=== PATIENT | male | born 1995 | race African-American/Black ===

== ENCOUNTER 2019-10-30 00:18 | Emergency (ER) | payer OTHER ==
[~2019-10-30] VITALS: Ht 172.7 cm; Wt 88.4 kg
--- NOTE | 2019-10-30 00:38 | PHYS DOC ---
Adult General Chief Complaint Chief Complaint: ".. I ve been vomiting.. for like 4 days.. feel like I got the flu or something..." HPI HPI Patient is a 24 year old male dependent who presents with above hx and complaints nausea and vomiting for the last 4 days. Patient did not get a flu vaccination this season. Recent travel to [facility] approximately 1 month ago. No history of bad food intake. No history immunosuppression. Normally follows at [facility]. Patient localizes pain in epigastric area. Review of Systems Review of Systems Constitutional: Denies fever or chills [] Eyes: Denies change in visual acuity, redness, or eye pain [] HENT: Denies nasal congestion or sore throat [] Respiratory: Denies cough or shortness of breath [] Cardiovascular: No additional information not addressed in HPI [] GI: Complaints of epigastric abdominal pain, nausea, vomiting. No history of, bloody stools or diarrhea [] : Denies dysuria or hematuria [] Musculoskeletal: Denies back pain or joint pain [] Integument: Denies rash or skin lesions [] Neurologic: Denies headache, focal weakness or sensory changes [] Endocrine: Denies polyuria or polydipsia [] All other systems were reviewed and found to be within normal limits, except as documented in this note. Family History Family History Noncontributory to presentation Current Medications Current Medications See nursing for home meds Allergies Allergies No known drug allergies Physical Exam Physical Exam Constitutional: Moderate acute distress, non-toxic appearance. [] HENT: Normocephalic, atraumatic, bilateral external ears normal, oropharynx dry, no oral exudates, nose normal. [] Eyes: PERRLA, EOMI, conjunctiva normal, no discharge. [] Neck: Normal range of motion, no tenderness, supple, no stridor. [] Cardiovascular:Heart rate regular rhythm, no murmur [] Lungs & Thorax: Bilateral breath sounds equal at apex with few scattered wheezes auscultation [] Abdomen: Bowel sounds normal, soft, epigastric tenderness, no masses, no pulsatile masses. [] Circumcised male. Scar on penis. Rebound to epigastric area Skin: Warm, dry, no erythema, no rash. [] Back: No tenderness, no CVA tenderness. [] Extremities: No tenderness, no cyanosis, no clubbing, ROM intact, no edema. [] No psoas sign. Neurologic: Alert and oriented X 3, normal motor function, normal sensory function, no focal deficits noted. [] Psychologic: Affect anxious, judgement normal, mood normal. [] EKG EKG [] Radiology/Procedures Radiology/Procedures [][address] [address] IMAGING REPORT Signed PATIENT: AMINTA PRETTYOUNT: [id number] : 1995 LOCATION: ER AGE: 24 SEX: M EXAM STATUS: REG ER ORD. PHYSICIAN: SHAKIRA JHA MD REASON: Abdomen pain, nausea, vomiting PROCEDURE: ACUTE ABDOMEN SERIES ACUTE ABDOMEN SERIES History: Abdominal pain. Nausea vomiting Technique: Upright and supine views of the abdomen. Comparison: None. Findings: No consolidation or pleural effusion. Normal heart size. No pneumoperitoneum. Minimal small bowel gas. Air and stool scattered throughout the imaged colon. Impression: 1. Nonobstructed bowel gas pattern. Electronically signed by: Dutch Dixon DO (10/30/2019 1:54 AM) [id number] DICTATED AND SIGNED BY: DUTCH DIXON DO DATE: 10/30/19 0154 CC: SHAKIRA JHA MD; PCP,TONIA ~ Course & Med Decision Making Course & Med Decision Making Pertinent Labs and Imaging studies reviewed. (See chart for details) Patient remain on a clear fluid diet for the next 48 hours. No solids no milk products. Must allow bowel rest. Takes Zantac 150 mg twice a day. Take Tylenol and ibuprofen as needed for discomfort. Take Zofran 8 mg up 4 times a day for active nausea and vomiting. Patient review ED record with primary care.. Push fruit juices. Return if any concerns. Impression: 1. Viral Syndrome 2. Hx Nausea and Vomiting 3. Gastritis 4. Mild Hypokalemia 3.4 [] Dragon Disclaimer Dragon Disclaimer This electronic medical record was generated, in whole or in part, using a voice recognition dictation system. Departure Departure: Disposition: 01 HOME/RESIDENCE PRIOR TO ADM Condition: STABLE Referrals: PCPTONIA (PCP) Scripts Ranitidine Hcl (ZANTAC) 150 Mg Tablet 150 MG PO BID for gastritis for 30 Days, #60 TAB Prov: SHAKIRA JHA MD 10/30/19 Ondansetron Hcl (ZOFRAN) 8 Mg Tablet 8 MG PO QIDPRN PRN for NAUSEA/VOMITING, #30 BOTTLE Prov: SHAKIRA JHA MD 10/30/19 Vivi Disclaimer This chart was dictated in whole or in part using Voice Recognition software in a busy, high-work load, and often noisy Emergency Department environment. It may contain unintended and wholly unrecognized errors or omissions. Dragon Disclaimer This chart was dictated in whole or in part using Voice Recognition software in a busy, high-work load, and often noisy Emergency Department environment. It may contain unintended and wholly unrecognized errors or omissions. SHAKIRA JHA MD Oct 30, 2019 00:38
[2019-10-30] MEDS ORDERED: IV RINGERS SOLUTION,LACTATED 1,000 ML IV SCH (01:00)
[2019-10-30] MEDS ORDERED: FAMOTIDINE 20 MG/2 ML VIAL IVP ONE (01:00)
[2019-10-30] MEDS ORDERED: ONDANSETRON PF 4 MG/2 ML VIAL. IVP ONE (01:00)
[2019-10-30 01:43] LABS: BASO % 1 % (0-3); EOS # 0.2 x10^3/uL (0.0-0.7); EOS % 4 % (0-3); HEMATOCRIT 50.6 % (39.0-53.0); HEMOGLOBIN 17.2 g/dL (13.0-17.5); LYMPH # 2.3 x10^3/uL (1.0-4.8); LYMPH % 41 % (24-48); MEAN CORPUSCULAR HEMOGLOBIN 30 pg (25-35); MEAN CORPUSCULAR HGB CONC 34 g/dL (31-37); MEAN CORPUSCULAR VOLUME 87 fL (79-100); MONO # 0.4 x10^3/uL (0.0-1.1); MONO % 7 % (0-9); NEUT # 2.6 x10^3uL (1.8-7.7); NEUT % 48 % (31-73); PLATELET COUNT 329 x10^3/uL (140-400); RED BLOOD COUNT 5.79 x10^6/uL (4.30-5.70); RED CELL DISTRIBUTION WIDTH 12.3 % (11.5-14.5); WHITE BLOOD COUNT 5.5 x10^3/uL (4.0-11.0)
[2019-10-30 01:50] LABS: CALCIUM 9.1 mg/dL (8.5-10.1); CREATININE 0.9 mg/dL (0.7-1.3); GFR 126.5; POTASSIUM 3.4 mmol/L (3.5-5.1)
[2019-10-30 01:50] LABS: BILIRUBIN,URINE NEG (NEG); CLARITY,URINE CLEAR; COLOR,URINE YELLOW; GLUCOSE,URINE NEG (NEG)
[2019-10-30 01:51] LABS: BACTERIA,URINE 0 /HPF (0-FEW); NITRITE,URINE NEG (NEG); RBC,URINE 0 /HPF (0-2); SQUAMOUS EPITHELIAL CELL,UR OCC /LPF
[2019-10-30 01:52] LABS: BARBITURATES NEG (NEG); BENZODIAZEPINES NEG (NEG); CANNABINOIDS NEG (NEG); COCAINE NEG (NEG); METHADONE NEG (NEG); OPIATES NEG (NEG); PHENCYCLIDINE NEG (NEG)
[2019-10-30 01:56] LABS: ALBUMIN 4.6 g/dL (3.4-5.0); DIRECT BILIRUBIN 0.2 mg/dL (0.0-0.2); TOTAL BILIRUBIN 0.8 mg/dL (0.2-1.0); TOTAL PROTEIN 8.8 g/dL (6.4-8.2)
--- NOTE | 2019-10-30 01:57 | RAD ---
ACUTE ABDOMEN SERIES History: Abdominal pain. Nausea vomiting Technique: Upright and supine views of the abdomen. Comparison: None. Findings: No consolidation or pleural effusion. Normal heart size. No pneumoperitoneum. Minimal small bowel gas. Air and stool scattered throughout the imaged colon. Impression: 1. Nonobstructed bowel gas pattern. Electronically signed by: Dutch Campbell DO (10/30/2019 1:54 AM) [id number]
[2019-10-30 01:59] LABS: AMPHETAMINE/METHAMPHETAMINE NEG (NEG)
[2019-10-30 02:04] LABS: INFLUENZA A PATIENT NEGATIVE (NEGATIVE); INFLUENZA B PATIENT NEGATIVE (NEGATIVE)
[2019-10-30] MEDS ORDERED: ONDA8TAB9 PO (02:29)
[2019-10-30] MEDS ORDERED: RANI-376 PO (02:29)
[2019-10-30 02:55] VITALS: BP 110/58
== END 2019-10-30 03:00 | disposition home or self-care (01) ==
LOC: ER 00:18
DX: B34.9 Viral infection, unspecified (principal); K29.70 Gastritis, unspecified, without bleeding; E87.6 Hypokalemia
CPT/HCPCS: 36415; 74022; 80048; 80076; 80307; 81001; 82150; 83690; 84484; 85025; 85610; 85730; 87070; 87804; 87880; 96361; 96374; 99284; J2405; J7120

== ENCOUNTER 2019-11-07 17:55 | Emergency (ER) | payer OTHER ==
[~2019-11-07] VITALS: Ht 172.7 cm; Wt 86.0 kg
[~2019-11-07 17:55] MED LIST: ONDA8TAB9 PO; RANI-376 PO
[2019-11-07 18:29] VITALS: BP 121/69
--- NOTE | 2019-11-07 18:38 | RAD ---
Study: TOES BILAT Indication: Bilateral great toe pain. Comparison: None. Findings: No acute fracture. Normal alignment. Maintained joint spaces. Impression: No osseous abnormality seen at the great toe or elsewhere to account for the patient's symptoms. Electronically signed by: AUNDREA CARDOZA MD (11/07/2019 6:34 PM) [id number]
--- NOTE | 2019-11-07 18:54 | PHYS DOC ---
Past History Past Medical History: No Pertinent History Past Surgical History: No Surgical History Alcohol Use: None Adult General Chief Complaint Chief Complaint: TOE PROBLEM HPI HPI 24-year-old male presents with bilateral great toe pain. He denies trauma. He denies any recent injury. He thinks he broke his left great toe several years ago. He believes that he needs x-rays so he can join the . He does not of a history of injury to the right great toe but it also has pain that is similar. It is a cramping pain and stiffness. Review of Systems Review of Systems Constitutional: Denies fever or chills [] Eyes: Denies change in visual acuity, redness, or eye pain [] HENT: Denies nasal congestion or sore throat [] Respiratory: Denies cough or shortness of breath [] Cardiovascular: No additional information not addressed in HPI [] GI: Denies abdominal pain, nausea, vomiting, bloody stools or diarrhea [] : Denies dysuria or hematuria [] Musculoskeletal: Bilateral great toe pain[] Integument: Denies rash or skin lesions [] Neurologic: Denies headache, focal weakness or sensory changes [] Endocrine: Denies polyuria or polydipsia [] All other systems were reviewed and found to be within normal limits, except as documented in this note. Allergies Allergies Allergies Coded Allergies Type Severity Reaction Last Updated Verified No Known Drug Allergies 10/30/19 No Physical Exam Physical Exam Constitutional: Well developed, well nourished, no acute distress, non-toxic appearance. [] HENT: Normocephalic, atraumatic, bilateral external ears normal, oropharynx moist, no oral exudates, nose normal. [] Eyes: PERRLA, EOMI, conjunctiva normal, no discharge. [] Neck: Normal range of motion, no tenderness, supple, no stridor. [] Cardiovascular:Heart rate regular rhythm, no murmur [] Lungs & Thorax: Bilateral breath sounds clear to auscultation [] Abdomen: Bowel sounds normal, soft, no tenderness, no masses, no pulsatile masses. [] Skin: Warm, dry, no erythema, no rash. [] Back: No tenderness, no CVA tenderness. [] Extremities: No tenderness, no cyanosis, no clubbing, ROM intact, no edema. [] Neurologic: Alert and oriented X 3, normal motor function, normal sensory function, no focal deficits noted. [] Psychologic: Affect normal, judgement normal, mood normal. [] EKG EKG [] Radiology/Procedures Radiology/Procedures [] Impressions: Study: TOES BILAT Indication: Bilateral great toe pain. Comparison: None. Findings: No acute fracture. Normal alignment. Maintained joint spaces. Impression: No osseous abnormality seen at the great toe or elsewhere to account for the patient's symptoms. Electronically signed by: AUNDREA CARDOZA MD (11/07/2019 6:34 PM) [id number] DICTATED AND SIGNED BY: AUNDREA CARDOZA MD DATE: 11/07/19 1834 CC: ADI BONE DO; PCP,NO ~ Course & Med Decision Making Course & Med Decision Making Pertinent Labs and Imaging studies reviewed. (See chart for details) The patient's toe x-rays are unremarkable. I provided him a disc in official report of his x-ray. He is stable for discharge at this time. [] Dragon Disclaimer Dragon Disclaimer This electronic medical record was generated, in whole or in part, using a voice recognition dictation system. Departure Departure: Impression: Primary Impression: Pain of right great toe Additional Impression: Pain of left great toe Disposition: HOME, SELF-CARE Condition: STABLE Referrals: PCP,NO (PCP) Problem Qualifiers ADI BONE DO Nov 07, 2019 18:54
== END 2019-11-07 19:09 | disposition home or self-care (01) ==
LOC: ER 17:55
DX: M79.674 Pain in right toe(s) (principal); M79.675 Pain in left toe(s)
CPT/HCPCS: 73660; 99283